=== PATIENT | female | born 1940 | race Caucasian/White ===

== ENCOUNTER → 2021-02-02 08:32 | Outpatient (REF) | payer MEDICARE, SELFPAY | LOC: ANHLAB 08:32 | PROVIDERS: PCP Internal Medicine; Visit Provider Nurse Practitioner | DX: C44.319 Basal cell carcinoma of skin of other parts of face (principal) | CPT/HCPCS: 88305 ==

== ENCOUNTER → 2021-04-12 08:48 | Outpatient (REF) | payer MEDICARE, SELFPAY | LOC: ANHLAB 08:48 | PROVIDERS: PCP Internal Medicine; Visit Provider Nurse Practitioner | DX: C44.319 Basal cell carcinoma of skin of other parts of face (principal) | CPT/HCPCS: 88305; 88331 ==

== ENCOUNTER 2022-03-14 00:15 | Day surgery (SDC) | payer MEDICARE, SELFPAY ==
[2022-02-25 13:18] VITALS: BMI 24.1
[2022-03-14 09:58] VITALS: BP 143/65; PULSE 70; RESP 16; TEMP 36.2; O2SAT 100; BMI 23.1
[2022-03-14] MEDS: LACTATED RINGERS 1,000 ML 150 ML IV CONT (10:17)
--- NOTE | 2022-03-14 10:20 | P.PNAN_ITS ---
Anes - Initial Pre Proc Eval Procedure: Operation Date: 03/14/22 11:00 Proposed Procedures p Esophagogastroduodenoscopy & Colonoscopy - John Higuera MD s [facility] Hemorrhoid Treatment - John Higuera MD Date/Time: 03/14/22 10:20 Surgeon: John Higuera MD Pre Op Diagnosis: Nausea, weightloss, diarrhea, hemorrhoids Patient Data Age: 81 Gender: F Height: 1.65 m Weight: 63 kg Last Vital Signs Temp 97.1 F L 03/14/22 09:58 Pulse 70 03/14/22 09:58 Resp 16 03/14/22 09:58 BP 143/65 H 03/14/22 09:58 Pulse Ox 100 03/14/22 09:58 O2 Del Method Room Air 03/14/22 09:58 Allergies Allergy/AdvReac Type Severity Reaction Status Date / Time No Known Allergies Allergy Verified 03/14/22 10:05 Home Medications Medication Instructions Recorded Confirmed Type atorvastatin 10 mg tablet (Lipitor) 10 mg PO DAILY 01/30/20 03/14/22 History cholecalciferol (vitamin D3) 25 25 mcg PO DAILY 01/30/20 03/14/22 History mcg (1,000 unit) capsule vitamin B12 1,000 mcg-folic acid 1 lozenge sublingual DAILY 01/30/20 03/14/22 History 400 mcg sublingual lozenge hydrocortisone 2.5 % topical cream 1 applic RECTAL BID 10 days #30 02/09/22 03/14/22 Rx with perineal applicator grams pantoprazole 40 mg tablet,delayed 40 mg PO QAM 02/25/22 03/14/22 History release (Protonix) escitalopram oxalate 10 mg tablet See Rx Instructions .Route 03/01/22 03/14/22 Rx .COMPLEX #90 tabs cholestyramine (with sugar) 4 gram 4 g PO BID #60 ea 03/11/22 03/14/22 Rx powder for susp in a packet (Questran) Patient hx anesthesia problems: none Family hx anesthesia problems: none Results Review: All pre-operative results and documents have been reviewed as part of the pre- operative evaluation. [facility] Past Medical History Medical History Appetite loss Arthritis Belching Diarrhea Nausea Over weight Surgical History Surgical History History of appendectomy History of cholecystectomy Social History Social History Smoking status: Never smoker Alcohol intake: current Anes - Eval Final PreProcedure Day of Procedure 03/14/22 10:20 Patient weight: normal Heart: regular rate and rhythm Lungs: clear to auscultation Airway: Mallampati scale class II Neurological: alert and oriented Last oral intake: >/= 8 hours ASA classification: II Emergent: no Anesthetic plan: proceed Anesthesia type and monitoring: general GIVS and standard monitoring Results Review: All pre-operative results and documents have been reviewed as part of the pre- operative evaluation. Informed Consent: The patient's anesthetic plan and its attendant risks and benefits were discussed with the patient/family/POA. Questions were solicited and answers provided to the satisfaction of the patient/family/POA.
--- NOTE | 2022-03-14 10:25 | PM.HPGS ---
History of Present Illness History of Present Illness Consent: Risks, benefits, and alternatives have been discussed and questions answered. Patient agrees to proceed with procedure. Chief complaint: Nausea, weightloss, diarrhea, hemorrhoids Narrative: Sintia Vargas is a 81 year old female with nausea and bloating but better after using protonix (symptom started after knee surgery), also diarrhea but better with low fodmap diet and questran, last colonoscopy 2008. Also wonder if hemorrhoid is inflammed Review of Systems Constitutional: Constitutional: Denies headache(s) and Denies weakness Eyes: Eyes: Denies blurry vision ENT: Reports Normal hearing present, Denies headache(s) and Denies neck pain Cardiovascular: Cardiovascular: Denies chest pain and Denies dyspnea Respiratory: Respiratory: Denies dyspnea Gastrointestinal: Gastrointestinal: Reports no additional gastrointestinal complaints Genitourinary: Genitourinary: Denies dysuria Musculoskeletal: Musculoskeletal: Denies neck pain Integumentary/Breasts: Skin/Breast: Denies dry skin Neurologic: Reports Normal hearing present, Denies headache(s) and Denies weakness Psychiatric: Psychiatric: Denies anxiety Endocrine: Endocrine: Denies change in body appearance Hematologic/Lymphatic: Hematologic/Lymphatic: Denies easy bleeding Allergic/Immunologic: Allergic/Immunologic: Denies urticaria PMFSH Past Medical History Medical History (Updated 03/14/22 @ 10:26 by John Higuera MD) Appetite loss Arthritis Belching Diarrhea Hemorrhoid Nausea Over weight Surgical History Surgical History History of appendectomy History of cholecystectomy Social History Social History Smoking status: Never smoker Alcohol intake: current Meds Home Medications and Allergies Home Medications Medication Instructions Recorded Confirmed Type atorvastatin 10 mg tablet (Lipitor) 10 mg PO DAILY 01/30/20 03/14/22 History cholecalciferol (vitamin D3) 25 25 mcg PO DAILY 01/30/20 03/14/22 History mcg (1,000 unit) capsule vitamin B12 1,000 mcg-folic acid 1 lozenge sublingual DAILY 01/30/20 03/14/22 History 400 mcg sublingual lozenge hydrocortisone 2.5 % topical cream 1 applic RECTAL BID 10 days #30 02/09/22 03/14/22 Rx with perineal applicator grams pantoprazole 40 mg tablet,delayed 40 mg PO QAM 02/25/22 03/14/22 History release (Protonix) escitalopram oxalate 10 mg tablet See Rx Instructions .Route 03/01/22 03/14/22 Rx .COMPLEX #90 tabs cholestyramine (with sugar) 4 gram 4 g PO BID #60 ea 03/11/22 03/14/22 Rx powder for susp in a packet (Questran) Allergies Allergy/AdvReac Type Severity Reaction Status Date / Time No Known Allergies Allergy Verified 03/14/22 10:05 Vital Signs Vital Signs - 24 hr 03/14/22 09:58 Temperature 97.1 F L Pulse Rate 70 Respiratory Rate 16 Blood Pressure 143/65 H Pulse Oximetry 100 Oxygen Delivery Room Air Exam Const: General: comfortable and no acute distress HENMT: General nose exam: Normal nares present Eyes: General: appearance normal, both eyes and all related structures Neck: Neck: no JVD Resp: Auscultation: clear to auscultation bilaterally Cardio: Rate: regular rate Rhythm: regular rhythm GI: Inspection: non-distended GI Palp: Yes Soft to palpation Skin: General skin exam: normal color Neuro: General: gait normal Speech: normal speech Extrem: General: normal to inspection Psych: Mental Status: mental status grossly normal Assessment and Plan Assessment and plan (1) Belching: Code(s): R14.2 - Eructation Status: Acute Assessment and Plan: egd with bx (2) Diarrhea: Code(s): R19.7 - Diarrhea, unspecified Status: Acute Assessment and Plan: colonoscopy with bx ? IBS (3) Appetite loss:
--- NOTE | 2022-03-14 10:56 | SUR.OPER ---
EGD START 1035, END 1038 COLONOSCOPY START 1044, END 1054 IRC START 1054, END 1055
[2022-03-14 10:58] VITALS: BP 096/58; PULSE 71; RESP 16; O2SAT 99
[2022-03-14 11:08] VITALS: BP 112/72; PULSE 72; RESP 16; O2SAT 98
[2022-03-14 11:18] VITALS: BP 114/68; PULSE 72; RESP 16; O2SAT 99
--- NOTE | 2022-03-14 12:00 | W.PM.PROC2 ---
Procedure Note - Detailed Date of Procedure 03/14/22 Pre-op Diagnosis hemorrhoids Post-op Diagnosis Same Procedure Performed irc of internal hemorrhoids Surgeon John Higuera MD Description of Procedure found grade II internal hemorrhoids, anoscope was introduced and then advanced irc probe, hemorrhoids treated for 1.5 seconds x5, no complications
== END 2022-03-14 11:37 | disposition home or self-care (01) ==
PROVIDERS: PCP Family Medicine; Visit Provider Internal Medicine Gastroenterology
PROC: 0DJ08ZZ Inspection of Upper Intestinal Tract, Via Natural or Artificial Opening Endoscopic (ICD-10-PCS; CPT 43235; principal; 2022-03-14 11:00)
PROC: (CPT 46930; 2022-03-14 11:00)
DX: Z12.11 Encounter for screening for malignant neoplasm of colon (principal); K58.9 Irritable bowel syndrome, unspecified; R19.7 Diarrhea, unspecified; K64.1 Second degree hemorrhoids; K57.30 Diverticulosis of large intestine without perforation or abscess without bleeding; R63.4 Abnormal weight loss; K64.9 Unspecified hemorrhoids; R11.0 Nausea; R14.0 Abdominal distension (gaseous); M19.90 Unspecified osteoarthritis, unspecified site; Z90.49 Acquired absence of other specified parts of digestive tract; R63.0 Anorexia; R14.2 Eructation
CPT/HCPCS: 43239; 45380; 46930; 88305; J2704; J7120

== ENCOUNTER 2022-06-10 09:45 | Outpatient (RCR) | payer MEDICARE, SELFPAY ==
--- NOTE | 2022-05-13 15:30 | PTOPEVAL1 ---
Assessment and note entered by Rosanna Anglin, PT Evaluation Information Assessment Status Evaluation Diagnosis Right carpal tunnel Onset 4 months ago Subjective Information Reports has symptoms with use of hand during activities like writing, sewing, and curling her hair in the morning. Reports has more numbness and tingling than pain, and never on her pinky finger, just her thumb and first 3 fingers. Reported Pain Level Pain Score 0: Self Report Assessment PT Clinical Summary Pt presents w/ diagnosis of carpal tunnel syndrome w/ right hand numbness and tinglign that began approx 4 months ago. Evaluation to r/o cervical and/or thoracic component of symptoms show no pain RUE, normal reflexes throughout, equal strength throughout, (-) TOS special testing, (-) symptom reproduction with cervical spine testing, (+) Phalen's, Rev Phalen's, and Tinels testing on R wrist. Pt does demo significantly reduced ROM of the C-spine, compression and distraction of c- spine did not reproduce pain. Wrist motion is reduced with apparent arthritis as well. Thus pt POC will focus on improving wrist ROM and space within the carpal tunnel for pt to be able to perform activities without n/t symptoms. Plan of Care Interventions Hot Pack/Cold Pack,Manual Therapy,Neuro Re- education,Paraffin Bath,Patient/Caregiver Educati, Prosthetic Training,Therapeutic Activities, Therapeutic Exercise,Ultrasound Other Interventions Taping, wrist brace PT Services Indicated Yes These treatments will address the objective and functional deficits as defined above. The patient will be advanced safely and appropriately in order for the patient to progress towards his/her prior level of function. Additional exercises will be introduced and as well as a comprehensive home exercise program upon discharge, if needed, ?to ensure carryover of functional gains achieved in the clinic. This treatment plan has been reviewed and agreement upon by the patient.
--- NOTE | 2022-06-10 12:08 | BUPTOPDC ---
Assessment and note entered by Rosanna Anglin, PT Assessment Status Discharge Report Diagnosis Right carpal tunnel Onset 4 months ago Subjective Information Reports 85% improvement overall. cont to have symptoms at times but notes she can write without symptoms now, and sometimes curl her hair without symptoms. She reports she understands and performs her HEP and is happy with her progress. Reported Pain Level Pain Score 0: Self Report Assessment PT Clinical Summary Pt reports feeling 85% improved overall. Demo's improvement in range, tissue extensibility, and reports improved symptoms with activities such as writing and curling her hair. Pt reports understanding her home program, and when to return to therapy if necessary. Thus patient is being discharged from her current POC.
== END 2022-06-13 10:33 | disposition home or self-care (01) ==
LOC: ANHHIPT 09:45
PROVIDERS: PCP Physician Assistant Medical; Visit Provider Physician Assistant Medical
DX: M54.12 Radiculopathy, cervical region (principal)
CPT/HCPCS: 97110; 97140; 97161

== ENCOUNTER 2023-07-30 09:59 | Emergency (ER) | payer MEDICARE, SELFPAY ==
[2023-07-30 10:10] VITALS: BP 124/66; PULSE 95; RESP 18; TEMP 37.4; O2SAT 100
--- NOTE | 2023-07-30 11:41 | ED.GENADULT ---
HPI - General Adult General Chief complaint: Upper Respiratory Infection Stated complaint: covid symptoms, rash on legs Time Seen by Provider: 07/30/23 11:41 Source: patient Mode of arrival: ambulatory Limitations: no limitations History of Present Illness HPI narrative: 82-year-old female presents to clinic today with recent symptoms of sore throat, runny nose, congestion and cough that started Monday. Patient reports no fevers, chills, body aches, but has a rash that started yesterday on both legs. Patient denies using new soaps, lotions, or having new animal inside her home and has not been around anyone with similar symptoms. Patient denies nausea, vomiting, shortness of breath, and diarrhea. Related Data Home Medications Medication Instructions Recorded Confirmed cholecalciferol (vitamin D3) 25 25 mcg PO DAILY 01/30/20 07/30/23 mcg (1,000 unit) capsule vitamin B12 1,000 mcg-folic acid 1 lozenge sublingual DAILY 01/30/20 07/30/23 400 mcg sublingual lozenge calcium carbonate 600 mg calcium 600 mg PO BID 12/15/22 07/30/23 (1,500 mg) tablet cholecalciferol (vitamin D3) 50 50 mcg PO BID 12/15/22 07/30/23 mcg (2,000 unit) capsule Allergies Allergy/AdvReac Type Severity Reaction Status Date / Time No Known Allergies Allergy Verified 07/30/23 10:48 Review of Systems Review of Systems: CONSTITUTIONAL: Denies fever, chills, or sweats. EYES: Denies visual changes, redness, or discharge. ENT: positive rhinorrhea, congestion, sore throat, and denies otalgia. CARDIOVASCULAR: Denies chest pain, palpitations, or edema. RESPIRATORY: positive cough, denies dyspnea. GASTROINTESTINAL: Denies abdominal pain, nausea, vomiting, or diarrhea. GENITOURINARY: Denies dysuria or hematuria. SKIN: positive rash that does not itch or hurt on both legs. MUSCULOSKELETAL: Denies back pain, joint pain, or myalgia. NEUROLOGIC: Denies headache, numbness, or weakness. PSYCHIATRIC: Denies anxiety or depression. [facility] Past Medical History Medical History Allergies Appetite loss Arthritis Belching Colon cancer screening Diarrhea Diverticulosis GERD (gastroesophageal reflux disease) Hemorrhoid History of basal cell carcinoma Hyperlipidemia Nausea Osteopenia Over weight Thyroid disorder screening Surgical History Surgical History ) History of appendectomy History of cholecystectomy Social History Social History ) Smoking status: Never smoker Alcohol intake: current Substance use: never Substance use type: does not use Lack of Transportation: No Lack of Food: Never True Current Housing: I Have Housing Concerned About Future Housing: No Difficulty Paying Gas/Electric Bills: No Difficulty Paying for Meds: No Currently Unemployed: No Education: High School Diploma/GED Difficulty w/ Childcare or Family Care: No Living arrangements: with family Occupation/Education: retired Gender identity (if verbalized by the patient): Female Sexual Orientation (if Verbalized by the Patient): Straight or Heterosexual Exam Narrative: GENERAL: Well-appearing, well-nourished, and in no acute distress. HEAD: Normocephalic, atraumatic. EYES: PERRLA and EOMI. conjunctiva are free of erythema and edema and without drainage. ENT: Nares clear, positive bilaterally for clear rhinorrhea and epistaxis. Mucous membranes moist. oral mucosa is pink and moist and posterior pharynx is slightly erythematous without exudate. NECK: Supple. positive submandibular lymphadenopathy. CHEST: Clear to auscultation. No respiratory distress. HEART: Regular rate and rhythm. No murmur heard. Normal peripheral pulses. ABDOMEN: Soft, nontender, nondistended, normal active bowel sounds. EXTREMITIES: Normal range of motion. No edema. SKIN: Warm, dry, positive s
== END 2023-07-30 12:31 | disposition home or self-care (01) ==
PROVIDERS: Emergency Provider Nurse Practitioner Family; PCP Physician Assistant Medical
DX: J10.1 Influenza due to other identified influenza virus with other respiratory manifestations (principal); B09 Unspecified viral infection characterized by skin and mucous membrane lesions; Z20.822 Contact with and (suspected) exposure to COVID-19; M19.90 Unspecified osteoarthritis, unspecified site; K21.9 Gastro-esophageal reflux disease without esophagitis; E78.5 Hyperlipidemia, unspecified; M85.80 Other specified disorders of bone density and structure, unspecified site; Z85.828 Personal history of other malignant neoplasm of skin
CPT/HCPCS: 87426; 87804; 99213; G0463